=== PATIENT | female | born 2005 | race African-American/Black ===

== ENCOUNTER 2023-03-30 17:31 | Inpatient (IN) ==
[2023-03-30] MEDS ORDERED: NS 1,000 ML IV 1,000 ML IV ONE ×2 (17:59→19:25)
--- NOTE | 2023-03-30 17:59 | DR.FEVERAD ---
HPI Time seen Time Seen by Provider: 03/30/23 17:59 PCP Primary Care Physician: Siu Complaints/Symptoms Chief Complaint:: Reports that she has had a fever of 102 earlier today and she had a stomach ache yesterday and back and headaches today. denies exposure to COVID or FLU. c/o nausea and vomiting. Patient states that she is a Type 2 Diabetic, HTN, high cholesterol. States that she has not had insulin in 2 months, and has not eaten today. Reports that she felt like this and had high pulse in Sep and was sent to [place], she can not recall information on this. Self Treatment fo Chief Complaint: NA COVID-19 Coronavirus risk:travel/contact w/high risk person: No Has patient experienced Coronavirus symptoms: Yes Coronavirus symptoms experienced: Fever Source History Provided: Patient Mode of Arrival Mode of Arrival: Ambulatory Timing Onset of Chief Complaint: 03/29/23 PMH PMH Past Medical History: Yes Past Medical History: Diabetes, Dyslipidemia and Hypertension Past Surgical History: No Family History History of Family Medical Conditions: Yes Family Medical History: Diabetes Mellitus and Hypertension Social History Alcohol Use: None Do you use any recreational Drugs:: No Lives With: Family Lives Where: Home Travel Risk Coronavirus risk:travel/contact w/high risk person: No Has patient experienced Coronavirus symptoms: Yes Coronavirus symptoms experienced: Fever Infectious screening Have you traveled outside the country in the last 6 months?: No Isolation: Standard PE Vital Signs Vitals: Vital Signs Temperature 98.4 F Temperature 99.0 F Temperature 99.0 F Pulse Rate [Left Radial] 118 Pulse Rate [Left Radial] 118 Pulse Rate [Left Radial] 119 Pulse Rate [Left Radial] 119 Pulse Rate [Left Radial] 124 Pulse Rate [Left Radial] 150 Pulse Rate 150 Respiratory Rate 20 Respiratory Rate 20 Respiratory Rate 20 Respiratory Rate 20 Respiratory Rate 20 Respiratory Rate 20 Respiratory Rate 20 Respiratory Rate 22 Respiratory Rate 22 Blood Pressure [Left Arm] 141/64 Blood Pressure [Left Arm] 134/62 Blood Pressure [Left Arm] 133/62 Blood Pressure [Left Arm] 138/65 Blood Pressure [Left Arm] 138/72 Blood Pressure [Left Arm] 128/78 Blood Pressure 128/78 O2 Sat by Pulse Oximetry 100 O2 Sat by Pulse Oximetry 100 O2 Sat by Pulse Oximetry 100 O2 Sat by Pulse Oximetry 100 O2 Sat by Pulse Oximetry 100 O2 Sat by Pulse Oximetry 96 O2 Sat by Pulse Oximetry 98 ROR Labs Reviewed 03/30/23 18:15 03/30/23 22:55 Laboratory: WBC 11.0 X10^3/uL (3.6-10.0) H 03/30/23 18:15 RBC 5.28 X10^6/uL (3.5-5.4) 03/30/23 18:15 Hgb 14.0 g/dL (12.0-16.0) 03/30/23 18:15 Hct 42.4 % (36.0-47.0) 03/30/23 18:15 MCV 80.4 fL (80.0-100.0) 03/30/23 18:15 MCH 26.6 pg (27.0-34.0) L 03/30/23 18:15 MCHC 33.1 g/dL (33.0-35.0) 03/30/23 18:15 RDW 13.6 % (11.6-16.5) 03/30/23 18:15 Plt Count 355 X10^3/uL (150.0-450.0) 03/30/23 18:15 MPV 9.6 fL (7.4-11.0) 03/30/23 18:15 Neut % (Auto) 82.6 % (42.0-75.0) H 03/30/23 18:15 Lymph % (Auto) 11.1 % (21.0-51.0) L 03/30/23 18:15 [place] % (Auto) 5.7 % (0.0-13.0) 03/30/23 18:15 Eos % (Auto) 0.0 % (0.9-2.9) L 03/30/23 18:15 Baso % (Auto) 0.6 % (0.2-1.0) 03/30/23 18:15 Neut # (Auto) 9.1 x10^3/uL (2.2-4.8) H 03/30/23 18:15 Lymph # (Auto) 1.2 X10^3/uL (1.3-2.9) L 03/30/23 18:15 [place] # (Auto) 0.6 x10^3/uL (0.3-0.8) 03/30/23 18:15 Eos # (Auto) 0.0 x10^3/uL (0.0-0.2) 03/30/23 18:15 Baso # (Auto) 0.1 X10^3/uL (0.0-0.1) 03/30/23 18:15 Absolute Nucleated RBC 0.1 /100WBC 03/30/23 18:15 Sample Site Lr 03/30/23 20:27 ABG pH 7.160 (7.35-7.45) L* 03/30/23 20:27 ABG pCO2 16.0 mmHg (35.0-45.0) L* 03/30/23 20:27 ABG pO2 117.0 mmHg (80.0-100.0) H 03/30/23 20:27 ABG HCO3 5.7 mmol/L (22-26) L* 03/30/23 20:27 ABG O2 Saturation 97.0 % (90-100) 03/30/23 20:27 ABG Base Excess -20.8 mmol/L (-2.0-2.0) L 03/30/23 20:27 Joshua Test Pos 03/30/23 20:27 A-a Gradient 13.0 mmHg 03/30/23 20:27 FiO2 21.0 03/30/23 20:27 Blood Gas Comments Marleni well ae 03/30/23 20:27 Sodium 131 mmol/L (136-145) L 03/30/23 22:55 Corrected Sodium 134 mmol/L (136-145) L 03/30/23 22:55 Potassium 4.0 mmol/L (3.5-5.1) 03/30/23 22:55 Chloride 98 mmol/L (98-107) 03/30/23 22:55 Carbon Dioxide 8.9 mmol/L (21-32) L* 03/30/23 22:55 BUN 9 mg/dL (7-18) 03/30/23 22:55 Creatinine 0.93 mg/dL (0.55-1.02) 03/30/23 22:55 Est GFR (MDRD) Af Amer > 60 (>60) 03/30/23 22:55 Est GFR (MDRD) Non-Af > 60 (>60) 03/30/23 22:55 Glucose 237 mg/dL (65-99) H 03/30/23 22:55 POC Glucose (mg/dL) 235 mg/dL (65-99) H 03/30/23 21:15 Lactic Acid 1.3 mmol/L (0.4-2.0) 03/30/23 18:15 Calcium 7.8 mg/dL (8.5-10.1) L 03/30/23 22:55 Corrected Calcium TNP 03/30/23 18:15 Total Bilirubin 0.70 mg/dL (0.2-1.0) 03/30/23 18:15 AST 12 Units/L (15-37) L 03/30/23 18:15 ALT 13 Units/L (12-78) 03/30/23 18:15 Alkaline Phosphatase 112 Units/L (45-150) 03/30/23 18:15 Total Protein 8.3 g/dL (6.4-8.2) H 03/30/23 18:15 Albumin 4.2 g/dL (3.4-5.0) 03/30/23 18:15 Globulin 4.1 g/dL (2.5-4.5) 03/30/23 18:15 Albumin/Globulin Ratio 1.0 Ratio (1.1-2.1) L 03/30/23 18:15 Specimen Type Clean catch urine 03/30/23 19:15 Urine Color Yellow (YELLOW) 03/30/23 19:15 Urine Appearance Clear (CLEAR) 03/30/23 19:15 Urine pH 5.0 (5.0 - 8.0) 03/30/23 19:15 Ur Specific [place] 1.025 (1.000-1.030) 03/30/23 19:15 Urine Protein 2+ (NEGATIVE) 03/30/23 19:15 Urine Glucose (UA) 4+ (NEGATIVE) 03/30/23 19:15 Urine Ketones 4+ (NEGATIVE) 03/30/23 19:15 Urine Blood 1+ (NEGATIVE) 03/30/23 19:15 Urine Nitrite Negative (NEGATIVE) 03/30/23 19:15 Urine Bilirubin Negative (NEGATIVE) 03/30/23 19:15 Urine Urobilinogen Normal (NORMAL) 03/30/23 19:15 Ur Leukocyte Esterase Negative (NEGATIVE) 03/30/23 19:15 Urine RBC 0-2 /HPF (0-3) 03/30/23 19:15 Urine WBC 0-2 /HPF (0-5) 03/30/23 19:15 Ur Squamous Epith Cells Rare /HPF (NEGATIVE) 03/30/23 19:15 Urine Bacteria Negative /HPF (NEGATIVE) 03/30/23 19:15 Hyaline Casts Rare /LPF (NEGATIVE) 03/30/23 19:15 Urine Mucus Rare /HPF (NEGATIVE) 03/30/23 19:15 Ur Culture Indicated? No/not indicated 03/30/23 19:15 Acetone, Semi-Quant Small (NEGATIVE) H 03/30/23 18:15 SARS-CoV-2 (PCR) Negative (NEGATIVE) 03/30/23 18:59 Influenza Type A (PCR) Negative (NEGATIVE) 03/30/23 18:59 Influenza Type B (PCR) Negative (NEGATIVE) 03/30/23 18:59 RSV (PCR) Negative (NEGATIVE) 03/30/23 18:59 Opioid Opioid Risk Tool Age (Bernard box if 16-45): Yes History of Preadolescent Sexual Abuse: No Total: 1 Total Score Risk Category: Low Risk Copyright: Eleno GRANDE predicting aberrant behaviors Discharge Plan Discharge Plan Patient Disposition: 01 HOME, SELF-CARE Condition: Stable Orders to Discharge Patient Discharge Orders: Transfer (Routine); Ordered 03/30/23 Ordered By: JAKE PEARL
[2023-03-30] MEDS ORDERED: NS 1,000 ML IV 1,000 ML ONE ×2 (18:02→19:26)
[2023-03-30 18:31] LABS: BASOPHILS # (AUTO) 0.1 X10^3/uL (0.0-0.1); BASOPHILS % (AUTO) 0.6 % (0.2-1.0); HEMATOCRIT 42.4 % (36.0-47.0); LYMPHOCYTES # (AUTO) 1.2 X10^3/uL (1.3-2.9); LYMPHOCYTES % (AUTO) 11.1 % (21.0-51.0); MEAN CORPUSCULAR HEMOGLOBIN 26.6 pg (27.0-34.0); MEAN CORPUSCULAR HGB CONC 33.1 g/dL (33.0-35.0); MEAN CORPUSCULAR VOLUME 80.4 fL (80.0-100.0); MEAN PLATELET VOLUME 9.6 fL (7.4-11.0); MONOCYTES # (AUTO) 0.6 x10^3/uL (0.3-0.8); MONOCYTES % (AUTO) 5.7 % (0.0-13.0); NEUTROPHILS # (AUTO) 9.1 x10^3/uL (2.2-4.8); NEUTROPHILS % (AUTO) 82.6 % (42.0-75.0); PLATELET COUNT 355 X10^3/uL (150.0-450.0); RED BLOOD COUNT 5.28 X10^6/uL (3.5-5.4); RED CELL DISTRIBUTION WIDTH 13.6 % (11.6-16.5)
[2023-03-30 18:43] LABS: ALANINE AMINOTRANSFERASE 13 Units/L (12-78); ALBUMIN 4.2 g/dL (3.4-5.0); ALKALINE PHOSPHATASE 112 Units/L (45-150); ASPARTATE AMINO TRANSFERASE 12 Units/L (15-37); BLOOD UREA NITROGEN 10 mg/dL (7-18); CHLORIDE 94 mmol/L (98-107); COR NA(FOR HYPERGLY) 135 mmol/L (136-145); CREATININE 1.08 mg/dL (0.55-1.02); GLUCOSE 328 mg/dL (65-99); POTASSIUM 4.2 mmol/L (3.5-5.1); SODIUM 130 mmol/L (136-145); TOTAL PROTEIN 8.3 g/dL (6.4-8.2); eGFR NON BLACK RACES > 60 (>60)
--- NOTE | 2023-03-30 18:43 | RAD ---
HISTORYFEVERSTUDYCHEST, 1 VIEWCOMPARISONFebruary 2022TECHNIQUEChest radiographic imaging, AP portable projection, 1 imageFINDINGSNo cardiomegaly.Possible airspace disease in the middle lobe.No pleural effusion.No pneumothorax.No acute osseous abnormality.IMPRESSIONPossible middle lobe pneumonia. Recommend two view chest radiograph series for further evaluation.Electronically signed by: Jarred Decker (Mar 30, 2023 18:42:30)
[2023-03-30 18:48] LABS: CARBON DIOXIDE 9.9 mmol/L (21-32); SERUM ACETONE SMALL (NEGATIVE)
[2023-03-30 18:51] LABS: LACTIC ACID 1.3 mmol/L (0.4-2.0)
[2023-03-30] MEDS ORDERED: TYLENOL 325 MG TAB PO ONE ×2 (19:04→19:05)
[2023-03-30 19:28] LABS: BILIRUBIN,URINE NEGATIVE (NEGATIVE); BLOOD/HEMOGLOBIN,URINE 1+ (NEGATIVE); GLUCOSE, URINE 4+ (NEGATIVE); KETONES,URINE 4+ (NEGATIVE); LEUKOCYTE ESTERASE ,URINE NEGATIVE (NEGATIVE); NITRITES,URINE NEGATIVE (NEGATIVE); PROTEIN,URINE 2+ (NEGATIVE); UROBILINOGEN,URINE NORMAL (NORMAL)
[2023-03-30 19:29] LABS: APPEARANCE,URINE CLEAR (CLEAR); COLOR,URINE YELLOW (YELLOW)
[2023-03-30 19:38] LABS: RBC,URINE 0-2 /HPF (0-3)
[2023-03-30 19:39] LABS: BACTERIA,URINE NEGATIVE /HPF (NEGATIVE); HYALINE CASTS, URINE RARE /LPF (NEGATIVE); SQUAMOUS EPITHELIAL CELL,UR RARE /HPF (NEGATIVE)
[2023-03-30] MEDS ORDERED: NovoLIN R (or HumuLIN R) IV ONE ×2 (19:53→20:27)
[2023-03-30] MEDS ORDERED: NovoLIN R (or HumuLIN R) ONE ×2 (20:31→20:35)
[2023-03-30 20:33] LABS: ABG BASE EXCESS -20.8 mmol/L (-2.0-2.0)
[2023-03-30 20:36] LABS: ABG ALLEN TEST POS; ABG HCO3 5.7 mmol/L (22-26)
[2023-03-30] MEDS ORDERED: SODIUM BICARBONATE 8.4% INJ ADULT IVP ONE (20:52)
[2023-03-30] MEDS ORDERED: SODIUM BICARBONATE 8.4% INJ ADULT ONE ×2 (20:56→20:58)
[2023-03-30] MEDS ORDERED: NS 1/2 1,000 ML IV 1,000 ML IV ONE (20:58)
[2023-03-30] MEDS: SODIUM BICARBONATE 8.4% INJ ADULT 100 ML in NS 1/2 1,000 ML IV 1,000 ML IV ONE ×2 (21:07→21:11)
[2023-03-30] MEDS ORDERED: MYXREDLIN 100 UNIT/100 ML BAG 100 UNIT/100 ML PLAST..BAG IV PRN (22:41)
[2023-03-30 23:16] LABS: BLOOD UREA NITROGEN 9 mg/dL (7-18); CALCIUM 7.8 mg/dL (8.5-10.1); CHLORIDE 98 mmol/L (98-107); COR NA(FOR HYPERGLY) 134 mmol/L (136-145); CREATININE 0.93 mg/dL (0.55-1.02); GLUCOSE 237 mg/dL (65-99); SODIUM 131 mmol/L (136-145); eGFR NON BLACK RACES > 60 (>60)
[2023-03-30 23:21] LABS: CARBON DIOXIDE 8.9 mmol/L (21-32)
[2023-03-30] MEDS ORDERED: D5W 1,000 ML IV 1,000 ML IV ONE (23:34)
[2023-03-30] MEDS ORDERED: D5W 1,000 ML IV 1,000 ML IV SCH (23:45)
[2023-03-30] MEDS: D5W 1,000 ML IV 1,000 ML IV SCH (23:50)
[2023-03-30] MEDS ORDERED: MYXREDLIN 100 UNIT/100 ML BAG 100 UNIT/100 ML PLAST..BAG IV ONE (23:51)
[2023-03-31] MEDS ORDERED: MYXREDLIN 100 UNIT/100 ML BAG 100 UNIT/100 ML PLAST..BAG IV PRN (00:41)
[2023-03-31 01:06] LABS: ABG BASE EXCESS -18.9 mmol/L (-2.0-2.0)
--- NOTE | 2023-03-31 01:06 | EKG ---
Test Reason : DKA Blood Pressure : */* mmHG Vent. Rate : 106 BPM Atrial Rate : 106 BPM P-R Int : 136 ms QRS Dur : 74 ms QT Int : 386 ms P-R-T Axes : 54 22 33 degrees QTc Int : 512 ms Sinus tachycardia Otherwise normal ECG When compared with ECG of 29-SEP-2022 02:28, Nonspecific T wave abnormality, improved in Inferior leads Nonspecific T wave abnormality, improved in Lateral leads Confirmed by Chad Griggs ([id number]) on 04/01/2023 8:05:01 AM Referred By: Confirmed By: Chad Griggs
[2023-03-31 01:08] LABS: ABG ALLEN TEST POS
[2023-03-31] MEDS ORDERED: D50W ABBOJECT SYR IV PRN (01:13)
[2023-03-31 01:19] VITALS: BMI 24.7
[2023-03-31] MEDS ORDERED: NovoLIN R (or HumuLIN R) ONE (01:32)
[2023-03-31 01:33] LABS: BLOOD UREA NITROGEN 8 mg/dL (7-18); CALCIUM 7.8 mg/dL (8.5-10.1); CHLORIDE 97 mmol/L (98-107); COR NA(FOR HYPERGLY) 133 mmol/L (136-145); CREATININE 0.99 mg/dL (0.55-1.02); GLUCOSE 241 mg/dL (65-99); SODIUM 130 mmol/L (136-145); eGFR NON BLACK RACES > 60 (>60)
[2023-03-31 01:34] LABS: SERUM ACETONE SMALL (NEGATIVE)
[2023-03-31 01:36] LABS: CARBON DIOXIDE 9.5 mmol/L (21-32)
[2023-03-31] MEDS: NovoLIN R (or HumuLIN R) IV PRN ×7 (01:44→22:45)
[2023-03-31 05:25] LABS: BASOPHILS # (AUTO) 0.1 X10^3/uL (0.0-0.1); BASOPHILS % (AUTO) 0.8 % (0.2-1.0); EOSINOPHILS % (AUTO) 0.1 % (0.9-2.9); HEMOGLOBIN 12.8 g/dL (12.0-16.0); LYMPHOCYTES # (AUTO) 2.5 X10^3/uL (1.3-2.9); LYMPHOCYTES % (AUTO) 31.8 % (21.0-51.0); MEAN CORPUSCULAR HEMOGLOBIN 26.6 pg (27.0-34.0); MEAN CORPUSCULAR HGB CONC 33.6 g/dL (33.0-35.0); MEAN CORPUSCULAR VOLUME 79.1 fL (80.0-100.0); MONOCYTES # (AUTO) 0.5 x10^3/uL (0.3-0.8); MONOCYTES % (AUTO) 6.5 % (0.0-13.0); NEUTROPHILS # (AUTO) 4.8 x10^3/uL (2.2-4.8); NEUTROPHILS % (AUTO) 60.8 % (42.0-75.0); PLATELET COUNT 321 X10^3/uL (150.0-450.0); RED CELL DISTRIBUTION WIDTH 13.8 % (11.6-16.5); WHITE BLOOD COUNT 7.9 X10^3/uL (3.6-10.0)
[2023-03-31 05:35] LABS: BLOOD UREA NITROGEN 7 mg/dL (7-18); CALCIUM 8.1 mg/dL (8.5-10.1); CARBON DIOXIDE 17.3 mmol/L (21-32); CHLORIDE 100 mmol/L (98-107); COR NA(FOR HYPERGLY) 134 mmol/L (136-145); CREATININE 0.91 mg/dL (0.55-1.02); GLUCOSE 190 mg/dL (65-99); POTASSIUM 3.5 mmol/L (3.5-5.1); SODIUM 132 mmol/L (136-145); eGFR NON BLACK RACES > 60 (>60)
--- NOTE | 2023-03-31 05:37 | EKG ---
Test Reason : DKA Blood Pressure : */* mmHG Vent. Rate : 106 BPM Atrial Rate : 106 BPM P-R Int : 140 ms QRS Dur : 74 ms QT Int : 380 ms P-R-T Axes : 49 27 30 degrees QTc Int : 504 ms Sinus tachycardia Nonspecific T wave abnormality Abnormal ECG When compared with ECG of 31-MAR-2023 00:54, (Unconfirmed) No significant change was found Referred By: Confirmed By:
[2023-03-31] MEDS: MYXREDLIN 100 UNIT/100 ML BAG 100 UNIT/100 ML PLAST..BAG IV PRN ×2 (06:20→15:32)
[2023-03-31] MEDS: NS 1,000 ML IV 1,000 ML IV SCH ×4 (06:20→17:57)
[2023-03-31] MEDS ORDERED: CONSULT PHARMACY - POTASSIUM & MAGNESIUM XX SCH (08:00)
[2023-03-31] MEDS: D5W 1,000 ML IV 1,000 ML IV SCH ×2 (08:39→15:33)
[2023-03-31] MEDS ORDERED: K-DUR TAB 20 MEQ PO SCH (09:00)
[2023-03-31 09:09] LABS: ABG BASE EXCESS -5.8 mmol/L (-2.0-2.0); ABG HCO3 18.5 mmol/L (22-26)
--- NOTE | 2023-03-31 09:09 | EKG ---
Test Reason : DKA Blood Pressure : */* mmHG Vent. Rate : 107 BPM Atrial Rate : 107 BPM P-R Int : 142 ms QRS Dur : 70 ms QT Int : 346 ms P-R-T Axes : 56 19 19 degrees QTc Int : 461 ms Sinus tachycardia Otherwise normal ECG When compared with ECG of 31-MAR-2023 05:26, (Unconfirmed) No significant change was found Referred By: Confirmed By:
[2023-03-31 09:10] LABS: ABG ALLEN TEST POS
[2023-03-31 09:11] LABS: BLOOD UREA NITROGEN 6 mg/dL (7-18); CALCIUM 7.8 mg/dL (8.5-10.1); CARBON DIOXIDE 20.7 mmol/L (21-32); CHLORIDE 103 mmol/L (98-107); GLUCOSE 96 mg/dL (65-99); POTASSIUM 3.4 mmol/L (3.5-5.1); SODIUM 134 mmol/L (136-145); eGFR NON BLACK RACES > 60 (>60)
[2023-03-31 13:31] LABS: BLOOD UREA NITROGEN 5 mg/dL (7-18); CALCIUM 8.2 mg/dL (8.5-10.1); CARBON DIOXIDE 18.5 mmol/L (21-32); CHLORIDE 103 mmol/L (98-107); CREATININE 0.75 mg/dL (0.55-1.02); GLUCOSE 92 mg/dL (65-99); POTASSIUM 3.3 mmol/L (3.5-5.1); SODIUM 134 mmol/L (136-145); eGFR NON BLACK RACES > 60 (>60)
[2023-03-31 16:09] LABS: ABG BASE EXCESS -3.2 mmol/L (-2.0-2.0); ABG HCO3 21.2 mmol/L (22-26)
[2023-03-31 16:10] LABS: ABG ALLEN TEST POS
--- NOTE | 2023-03-31 17:18 | DR.H&P ---
H&P History & Physical for Day of: H&P Date: 03/31/23 Chief Complaint Chief Complaint: Nausea, vomiting abdominal pain, headache Allergies Allergies Allergy/AdvReac Type Severity Reaction Status Date / Time No Known Drug Allergies Allergy Verified 09/28/22 22:26 [NKDA] History of Present Illness History of Present Illness: Pt is a 17 year old female with past medical history of Diabetes mellitus presenting with nausea, vomiting, abdominal pain, headache for the past few days. She states that she has not had her insulin for the past month. Patient states that she usually takes Lantus 45 units in the evening and then premeal sliding scale insulin. Reports that due to insurance she has not been able to get medications. Patient was admitted for diabetic ketoacidosis. She was started on DKA protocol. Labs and ABG revealing that she is acidotic. Labs/imaging: WBC 7.9, hemoglobin 12.8, platelets 321, sodium 134, potassium 3.4, creatinine 0.80, glucose 96, initial ABG: pH 7.16, PCO2 16, PaO2 117, HCO3 5.7, O2 sat 97 on room air. UA negative, chest x-ray revealed a possible middle lobe pneumonia. Plan: Admit to ICU for closer monitoring. Continue DKA protocol with insulin drip. Monitor glucose levels closely. Continue hydration. Replace electrolytes as needed. Repeat CXR. Continue IV Fortaz. Follow pending cultures. Continue to closely monitor and follow-up labs and imaging. Time spent for clinical assessment, reviewing labs and imaging, physical exam, decision making and documentation greater than 45 mins. Past Medical History Past Medical History: Diabetes, Dyslipidemia and Hypertension Family History Family Medical History: Diabetes Mellitus, CA and Hypertension Social History Does patient currently use any type of tobacco product: No Have you used tobacco products in the last 12 months: No Type of Tobacco Use: None Does any household member use tobacco: No Alcohol Use: None Drug Use: None Medications Home Medications: Home Medications Medication Instructions Recorded Confirmed Type atorvastatin 20 mg tablet 20 mg PO QDAY 03/30/23 03/30/23 History insulin glargine 100 unit/mL 45 unit subcut QPM 03/30/23 03/30/23 History subcutaneous solution (Lantus U-100 Insulin) lisinopril 20 1 tab PO QDAY 03/30/23 03/30/23 History mg-hydrochlorothiazide 12.5 mg tablet Labs 03/31/23 04:50 03/31/23 12:56 Labs: Laboratory WBC 7.9 X10^3/uL (3.6-10.0) 03/31/23 04:50 RBC 4.80 X10^6/uL (3.5-5.4) 03/31/23 04:50 Hgb 12.8 g/dL (12.0-16.0) 03/31/23 04:50 Hct 38.0 % (36.0-47.0) 03/31/23 04:50 MCV 79.1 fL (80.0-100.0) L 03/31/23 04:50 MCH 26.6 pg (27.0-34.0) L 03/31/23 04:50 MCHC 33.6 g/dL (33.0-35.0) 03/31/23 04:50 RDW 13.8 % (11.6-16.5) 03/31/23 04:50 Plt Count 321 X10^3/uL (150.0-450.0) 03/31/23 04:50 MPV 9.0 fL (7.4-11.0) 03/31/23 04:50 Neut % (Auto) 60.8 % (42.0-75.0) 03/31/23 04:50 Lymph % (Auto) 31.8 % (21.0-51.0) 03/31/23 04:50 [place] % (Auto) 6.5 % (0.0-13.0) 03/31/23 04:50 Eos % (Auto) 0.1 % (0.9-2.9) L 03/31/23 04:50 Baso % (Auto) 0.8 % (0.2-1.0) 03/31/23 04:50 Neut # (Auto) 4.8 x10^3/uL (2.2-4.8) 03/31/23 04:50 Lymph # (Auto) 2.5 X10^3/uL (1.3-2.9) 03/31/23 04:50 [place] # (Auto) 0.5 x10^3/uL (0.3-0.8) 03/31/23 04:50 Eos # (Auto) 0.0 x10^3/uL (0.0-0.2) 03/31/23 04:50 Baso # (Auto) 0.1 X10^3/uL (0.0-0.1) 03/31/23 04:50 Absolute Nucleated RBC 0.0 /100WBC 03/31/23 04:50 Sample Site Lra 03/31/23 09:05 ABG pH 7.370 (7.35-7.45) 03/31/23 09:05 ABG pCO2 32.0 mmHg (35.0-45.0) L 03/31/23 09:05 ABG pO2 106.0 mmHg (80.0-100.0) H 03/31/23 09:05 ABG HCO3 18.5 mmol/L (22-26) L 03/31/23 09:05 ABG O2 Saturation 98.0 % (90-100) 03/31/23 09:05 ABG Base Excess -5.8 mmol/L (-2.0-2.0) L 03/31/23 09:05 Joshua Test Pos 03/31/23 09:05 A-a Gradient 4.0 mmHg 03/31/23 09:05 FiO2 21.0 03/31/23 09:05 Blood Gas Comments Pt mark well eb 03/31/23 09:05 Sodium 134 mmol/L (136-145) L 03/31/23 08:53 Corrected Sodium TNP 03/31/23 08:53 Potassium 3.4 mmol/L (3.5-5.1) L 03/31/23 08:53 Chloride 103 mmol/L (98-107) 03/31/23 08:53 Carbon Dioxide 20.7 mmol/L (21-32) L 03/31/23 08:53 BUN 6 mg/dL (7-18) L 03/31/23 08:53 Creatinine 0.80 mg/dL (0.55-1.02) 03/31/23 08:53 Est GFR (MDRD) Af Amer > 60 (>60) 03/31/23 08:53 Est GFR (MDRD) Non-Af > 60 (>60) 03/31/23 08:53 Glucose 96 mg/dL (65-99) 03/31/23 08:53 POC Glucose (mg/dL) 93 mg/dL (65-99) 03/31/23 11:01 Lactic Acid 1.3 mmol/L (0.4-2.0) 03/30/23 18:15 Calcium 7.8 mg/dL (8.5-10.1) L 03/31/23 08:53 Corrected Calcium TNP 03/30/23 18:15 Magnesium 2.0 mg/dL (2.0-2.9) 03/31/23 04:50 Total Bilirubin 0.70 mg/dL (0.2-1.0) 03/30/23 18:15 AST 12 Units/L (15-37) L 03/30/23 18:15 ALT 13 Units/L (12-78) 03/30/23 18:15 Alkaline Phosphatase 112 Units/L (45-150) 03/30/23 18:15 Total Protein 8.3 g/dL (6.4-8.2) H 03/30/23 18:15 Albumin 4.2 g/dL (3.4-5.0) 03/30/23 18:15 Globulin 4.1 g/dL (2.5-4.5) 03/30/23 18:15 Albumin/Globulin Ratio 1.0 Ratio (1.1-2.1) L 03/30/23 18:15 Specimen Type Clean catch urine 03/30/23 19:15 Urine Color Yellow (YELLOW) 03/30/23 19:15 Urine Appearance Clear (CLEAR) 03/30/23 19:15 Urine pH 5.0 (5.0 - 8.0) 03/30/23 19:15 Ur Specific [place] 1.025 (1.000-1.030) 03/30/23 19:15 Urine Protein 2+ (NEGATIVE) 03/30/23 19:15 Urine Glucose (UA) 4+ (NEGATIVE) 03/30/23 19:15 Urine Ketones 4+ (NEGATIVE) 03/30/23 19:15 Urine Blood 1+ (NEGATIVE) 03/30/23 19:15 Urine Nitrite Negative (NEGATIVE) 03/30/23 19:15 Urine Bilirubin Negative (NEGATIVE) 03/30/23 19:15 Urine Urobilinogen Normal (NORMAL) 03/30/23 19:15 Ur Leukocyte Esterase Negative (NEGATIVE) 03/30/23 19:15 Urine RBC 0-2 /HPF (0-3) 03/30/23 19:15 Urine WBC 0-2 /HPF (0-5) 03/30/23 19:15 Ur Squamous Epith Cells Rare /HPF (NEGATIVE) 03/30/23 19:15 Urine Bacteria Negative /HPF (NEGATIVE) 03/30/23 19:15 Hyaline Casts Rare /LPF (NEGATIVE) 03/30/23 19:15 Urine Mucus Rare /HPF (NEGATIVE) 03/30/23 19:15 Ur Culture Indicated? No/not indicated 03/30/23 19:15 Acetone, Semi-Quant Small (NEGATIVE) H 03/31/23 01:00 SARS-CoV-2 (PCR) Negative (NEGATIVE) 03/30/23 18:59 Influenza Type A (PCR) Negative (NEGATIVE) 03/30/23 18:59 Influenza Type B (PCR) Negative (NEGATIVE) 03/30/23 18:59 RSV (PCR) Negative (NEGATIVE) 03/30/23 18:59 Review of Systems Constitutional: Weakness Eyes: No Symptoms Reported ENT: No Symptoms Reported Respiratory: No Symptoms Reported Cardiovascular: No Symptoms Reported Gastrointestinal: Nausea, Vomiting and Abdominal Pain Genitourinary: No Symptoms Reported Musculoskeletal: No Symptoms Reported Skin: No Symptoms Reported Neurological: No Symptoms Reported Physical Exam Vital Signs: Vital Signs Temperature 98.9 F Temperature 97.5 F Pulse Rate 106 Pulse Rate 108 Pulse Rate 108 Pulse Rate 103 Pulse Rate 103 Pulse Rate 103 Pulse Rate 102 Pulse Rate 108 Pulse Rate 104 Pulse Rate 101 Pulse Rate 102 Pulse Rate 109 Pulse Rate 103 Pulse Rate 104 Pulse Rate 104 Pulse Rate 106 Pulse Rate 105 Pulse Rate 107 Pulse Rate 106 Pulse Rate 104 Pulse Rate 101 Pulse Rate 104 Pulse Rate 104 Pulse Rate 102 Pulse Rate 108 Pulse Rate 110 Pulse Rate 108 Pulse Rate 109 Pulse Rate 108 Pulse Rate 110 Respiratory Rate 17 Respiratory Rate 17 Respiratory Rate 17 Respiratory Rate 17 Respiratory Rate 16 Respiratory Rate 16 Respiratory Rate 20 Respiratory Rate 23 Respiratory Rate 17 Respiratory Rate 16 Respiratory Rate 16 Respiratory Rate 18 Respiratory Rate 16 Respiratory Rate 17 Respiratory Rate 16 Respiratory Rate 16 Respiratory Rate 16 Respiratory Rate 18 Respiratory Rate 17 Respiratory Rate 17 Respiratory Rate 17 Respiratory Rate 18 Respiratory Rate 20 Respiratory Rate 16 Respiratory Rate 16 Respiratory Rate 17 Respiratory Rate 18 Respiratory Rate 17 Respiratory Rate 18 Blood Pressure 117/56 Blood Pressure 110/52 Blood Pressure 108/53 Blood Pressure 98/57 Blood Pressure 105/53 Blood Pressure 108/55 Blood Pressure 107/58 Blood Pressure 104/58 Blood Pressure 106/57 Blood Pressure 106/60 Blood Pressure 106/60 Blood Pressure 108/56 Blood Pressure 106/58 Blood Pressure 117/62 Blood Pressure 113/66 Blood Pressure 109/58 O2 Sat by Pulse Oximetry 99 O2 Sat by Pulse Oximetry 98 O2 Sat by Pulse Oximetry 99 O2 Sat by Pulse Oximetry 98 O2 Sat by Pulse Oximetry 99 O2 Sat by Pulse Oximetry 97 O2 Sat by Pulse Oximetry 99 O2 Sat by Pulse Oximetry 99 O2 Sat by Pulse Oximetry 99 O2 Sat by Pulse Oximetry 98 O2 Sat by Pulse Oximetry 99 O2 Sat by Pulse Oximetry 97 O2 Sat by Pulse Oximetry 97 O2 Sat by Pulse Oximetry 99 O2 Sat by Pulse Oximetry 99 O2 Sat by Pulse Oximetry 98 O2 Sat by Pulse Oximetry 98 O2 Sat by Pulse Oximetry 99 O2 Sat by Pulse Oximetry 99 O2 Sat by Pulse Oximetry 99 O2 Sat by Pulse Oximetry 99 O2 Sat by Pulse Oximetry 98 O2 Sat by Pulse Oximetry 98 O2 Sat by Pulse Oximetry 98 O2 Sat by Pulse Oximetry 99 O2 Sat by Pulse Oximetry 99 O2 Sat by Pulse Oximetry 99 O2 Sat by Pulse Oximetry 99 O2 Sat by Pulse Oximetry 99 O2 Sat by Pulse Oximetry 98 Oriented: Normal Eyes: Normal Ear: Normal Nose: Normal Throat: Normal Respiratory: Clear Throughout Cardiovascular: Normal : Normal Auscultation: Bowel Sounds: Normal Palpation: Normal Tenderness: Normal Skin: Normal Musculoskeletal: Normal Psychiatric: Normal Mood Description: Calm and Appropriate Affect: Normal Speech Pattern: Clear and Appropriate Assessment/Plan (1) DKA (diabetic ketoacidosis): Qualifiers: Diabetes mellitus complication detail: without coma Diabetes mellitus type: type 1 Qualified Code(s): E10.10 - Type 1 diabetes mellitus with ketoacidosis without coma Status: Acute (2) Metabolic acidosis: Status: Acute (3) Hypokalemia: Status: Acute (4) Dehydration: Status: Acute (5) Nausea and vomiting: Qualifiers: Vomiting type: unspecified Qualified Code(s): R11.2 - Nausea with vomiting, unspecified Status: Acute (6) Hyperglycemia: Status: Acute (7) Pneumonia: Qualifiers: Laterality: unspecified laterality Lung location: unspecified part of lung Pneumonia type: due to unspecified organism Qualified Code(s): J18.9 - Pneumonia, unspecified organism Status: Acute (8) Uncontrolled type 1 diabetes mellitus: Qualifiers: Glycemic state: with hyperglycemia Qualified Code(s): E10.65 - Type 1 diabetes mellitus with hyperglycemia Status: Acute (9) Non compliance w medication regimen: Status: Acute Review H&P Reviewed: Yes Patient was examined?: Yes
--- NOTE | 2023-03-31 19:38 | RAD ---
HISTORYPOSSIBLE PNEUMONIA HTN, DIABETESSTUDYCHEST, 1 VIEWCOMPARISONFINDINGSThe trachea is midline. The cardiac silhouette is unremarkable. The lungs are clear without focal infiltrate or effusion. The bony thorax is unremarkable.IMPRESSIONNo acute cardiopulmonary findings .Electronically signed by: Cj Loredo (Mar 31, 2023 19:37:01)
[2023-03-31] MEDS ORDERED: SNACK - Diabetic Appropriate PO SCH (20:00)
[2023-04-01] MEDS: D5W 1,000 ML IV 1,000 ML IV SCH ×2 (00:25→08:44)
[2023-04-01] MEDS: NS 1,000 ML IV 1,000 ML IV SCH ×3 (00:26→17:37)
[2023-04-01] MEDS: NovoLIN R (or HumuLIN R) IV PRN ×2 (00:33→08:45)
[2023-04-01 01:37] LABS: ABG BASE EXCESS -1.7 mmol/L (-2.0-2.0)
[2023-04-01 01:38] LABS: ABG ALLEN TEST POS
[2023-04-01 05:46] LABS: BASOPHILS # (AUTO) 0.1 X10^3/uL (0.0-0.1); EOSINOPHILS # (AUTO) 0.1 x10^3/uL (0.0-0.2); EOSINOPHILS % (AUTO) 0.8 % (0.9-2.9); HEMATOCRIT 34.9 % (36.0-47.0); LYMPHOCYTES # (AUTO) 2.8 X10^3/uL (1.3-2.9); LYMPHOCYTES % (AUTO) 43.3 % (21.0-51.0); MEAN CORPUSCULAR HEMOGLOBIN 26.9 pg (27.0-34.0); MEAN CORPUSCULAR HGB CONC 34.3 g/dL (33.0-35.0); MEAN CORPUSCULAR VOLUME 78.3 fL (80.0-100.0); MEAN PLATELET VOLUME 9.7 fL (7.4-11.0); MONOCYTES # (AUTO) 0.7 x10^3/uL (0.3-0.8); MONOCYTES % (AUTO) 10.4 % (0.0-13.0); NEUTROPHILS # (AUTO) 2.9 x10^3/uL (2.2-4.8); NEUTROPHILS % (AUTO) 44.5 % (42.0-75.0); PLATELET COUNT 280 X10^3/uL (150.0-450.0); RED BLOOD COUNT 4.45 X10^6/uL (3.5-5.4); RED CELL DISTRIBUTION WIDTH 13.6 % (11.6-16.5); WHITE BLOOD COUNT 6.5 X10^3/uL (3.6-10.0)
[2023-04-01 05:59] LABS: ALANINE AMINOTRANSFERASE < 6 Units/L (12-78); ALBUMIN 2.7 g/dL (3.4-5.0); ALKALINE PHOSPHATASE 80 Units/L (45-150); ASPARTATE AMINO TRANSFERASE < 6 Units/L (15-37); BLOOD UREA NITROGEN 9 mg/dL (7-18); CARBON DIOXIDE 24.4 mmol/L (21-32); CHLORIDE 107 mmol/L (98-107); CREATININE 0.57 mg/dL (0.55-1.02); GLUCOSE 80 mg/dL (65-99); POTASSIUM 3.2 mmol/L (3.5-5.1); SODIUM 138 mmol/L (136-145); TOTAL PROTEIN 5.8 g/dL (6.4-8.2); eGFR NON BLACK RACES > 60 (>60)
[2023-04-01] MEDS ORDERED: CONSULT PHARMACY - POTASSIUM & MAGNESIUM XX SCH (07:00)
[2023-04-01] MEDS: K-DUR TAB 20 MEQ PO SCH ×2 (08:50→10:45)
[2023-04-01] MEDS: MAG-OX TAB PO SCH ×2 (08:50→10:01)
[2023-04-01] MEDS ORDERED: NovoLIN N or HumuLIN N SC ONE ×2 (09:14→09:15)
[2023-04-01] MEDS ORDERED: HumaLOG SC PRN (09:16)
[2023-04-01] MEDS: NovoLIN R (or HumuLIN R) SC PRN ×2 (17:47→21:30)
[2023-04-01] MEDS ORDERED: SNACK - Diabetic Appropriate PO SCH (20:00)
[2023-04-01] MEDS ORDERED: LANTUS SC SCH (21:00)
[2023-04-02] MEDS: NS 1,000 ML IV 1,000 ML IV SCH ×2 (01:39→09:41)
[2023-04-02 05:35] LABS: EOSINOPHILS % (AUTO) 0.8 % (0.9-2.9); HEMATOCRIT 34.3 % (36.0-47.0); HEMOGLOBIN 11.7 g/dL (12.0-16.0); LYMPHOCYTES # (AUTO) 2.6 X10^3/uL (1.3-2.9); MEAN CORPUSCULAR HEMOGLOBIN 26.8 pg (27.0-34.0); MEAN CORPUSCULAR HGB CONC 34.1 g/dL (33.0-35.0); MEAN CORPUSCULAR VOLUME 78.5 fL (80.0-100.0); MEAN PLATELET VOLUME 9.2 fL (7.4-11.0); MONOCYTES # (AUTO) 0.4 x10^3/uL (0.3-0.8); MONOCYTES % (AUTO) 8.3 % (0.0-13.0); NEUTROPHILS # (AUTO) 1.8 x10^3/uL (2.2-4.8); NEUTROPHILS % (AUTO) 36.9 % (42.0-75.0); PLATELET COUNT 259 X10^3/uL (150.0-450.0); RED BLOOD COUNT 4.37 X10^6/uL (3.5-5.4); RED CELL DISTRIBUTION WIDTH 13.7 % (11.6-16.5); WHITE BLOOD COUNT 4.9 X10^3/uL (3.6-10.0)
[2023-04-02 05:45] LABS: ALANINE AMINOTRANSFERASE 9 Units/L (12-78); ALBUMIN 2.5 g/dL (3.4-5.0); ALKALINE PHOSPHATASE 73 Units/L (45-150); ASPARTATE AMINO TRANSFERASE 10 Units/L (15-37); BLOOD UREA NITROGEN 8 mg/dL (7-18); CALCIUM 8.2 mg/dL (8.5-10.1); CARBON DIOXIDE 24.3 mmol/L (21-32); CHLORIDE 106 mmol/L (98-107); COR CA(FOR HYPOALB) 9.4 mg/dL (8.5-10.1); COR NA(FOR HYPERGLY) 141 mmol/L (136-145); CREATININE 0.46 mg/dL (0.55-1.02); GLUCOSE 207 mg/dL (65-99); MAGNESIUM 1.7 mg/dL (2.0-2.9); POTASSIUM 3.4 mmol/L (3.5-5.1); SODIUM 138 mmol/L (136-145); TOTAL PROTEIN 5.5 g/dL (6.4-8.2); eGFR NON BLACK RACES > 60 (>60)
[2023-04-02] MEDS: NovoLIN R (or HumuLIN R) SC PRN (05:52)
[2023-04-02] MEDS ORDERED: CONSULT PHARMACY - POTASSIUM & MAGNESIUM XX SCH (06:00)
[2023-04-02] MEDS ORDERED: MAG-OX TAB PO SCH (09:00)
[2023-04-02] MEDS ORDERED: K-DUR TAB 20 MEQ PO SCH (09:00)
[2023-04-02 09:39] VITALS: TEMP 97.7
[2023-04-02 11:48] VITALS: BP 110/69; PULSE 77; RESP 16; O2SAT 97
== END 2023-04-02 11:35 | disposition home or self-care (01) | DRG 637 ==
LOC: SUPCPDRO → ER 17:49 → ICU 23:47
PROVIDERS: ADMIT Family Medicine; ATTEND Obstetrics & Gynecology Obstetrics
DX: E78.2 Mixed hyperlipidemia; J18.8 Other pneumonia, unspecified organism; Z20.822 Contact with and (suspected) exposure to COVID-19; E87.6 Hypokalemia; R10.84 Generalized abdominal pain; I10 Essential (primary) hypertension; E86.0 Dehydration; Z91.14 Patient's other noncompliance with medication regimen; R11.2 Nausea with vomiting, unspecified; E10.10 Type 1 diabetes mellitus with ketoacidosis without coma; R51.9 Headache, unspecified